=== PATIENT | male | born 1940 | race African-American/Black ===

== ENCOUNTER 2018-12-21 10:17 | Day surgery (SDC) | payer MEDICARE ==
[~2018-12-21 10:17] MED LIST: ACETAMINOPHEN 1,000 MG/100 ML BTL IVPB ONE; ACETAMINOPHEN 325 MG TAB PO PRN; ACETAMINOPHEN W/ CODEINE 300MG/30MG TABLET PO PRN; ACETAMINOPHEN W/ CODEINE 300MG/60MG TABLET PO PRN; AL HYDROX/MAG HYDROX 30ML UD PO PRN; BISACODYL 10 MG SUPP RC PRN; CEFAZOLIN 2 Gram 2 GM/50 ML BAG IVPB SCH; CELECOXIB 100 MG CAPSULE PO ONE; DIPHENHYDRAMINE HCL 25 MG CAPSULE PO PRN; FAMOTIDINE 20MG TABLET PO ONE; HYDROCODONE/APAP 5/325MG TABLET PO PRN; HYDROCODONE/APAP 7.5/325MG TABLET PO PRN; HYDROMORPHONE HCL 2 MG/ML VIAL IM PRN; KETOROLAC 30 MG/ML VIAL IVP PRN; MAGNESIUM HYDROXIDE 30 ML UDC PO PRN; METOCLOPRAMIDE 10 MG TABLET PO ONE; METOCLOPRAMIDE HCL 10 MG/2 ML VIAL IVP PRN; NALOXONE 0.4 MG/1 ML VIAL IVP PRN; ONDANSETRON HCL IV 4 MG/2 ML VIAL IVP PRN; PROMETHAZINE HCL 12.5 MG in 0.9 % SODIUM CHLORIDE 100ML 50 ML IVPB PRN; RINGERS SOLUTION,LACTATED 1,000 ML IV ONE; SCOPOLAMINE 1 PATCH TDSY TD ONE; TRAMADOL HCL 50 MG TABLET PO PRN; VANCOMYCIN 1GM/200ML PREMIX 1 GM/200 ML PIGGYBACK IVPB ONE; ZOLPIDEM TARTRATE 5 MG TABLET PO PRN
[2018-12-21] MEDS ORDERED: PROPOFOL 10 MG/ML VIAL IV ONE (10:18)
[2018-12-21] MEDS ORDERED: BUPIVACAINE LIPOSOME 266MG/20ML VIAL IV ONE (10:18)
[2018-12-21] MEDS ORDERED: TRANEXAMIC ACID 1,000 MG/10 ML ML IV ONE ×2 (10:18)
[2018-12-21] MEDS ORDERED: BUPIVACAINE 0.5% W/EPI MPF 30 ML VIAL IVP ONE (10:18)
[2018-12-21] MEDS ORDERED: MIDAZOLAM HCL 2MG/2ML VIAL IV ONE (10:18)
[2018-12-21] MEDS ORDERED: VANCOMYCIN HCL 1 GM VIAL IVPB ONE ×2 (10:18)
[2018-12-21] MEDS ORDERED: ROPIVACAINE HCL (NAROPIN) /PF 5MG/ML 20ML VIAL IV ONE (10:18)
[2018-12-21] MEDS ORDERED: DEXAMETHASONE 4 MG/ML 1ML VIAL IVP ONE (10:18)
[2018-12-21 10:48] LABS: INR 1.1; PROTHROMBIN TIME (PATIENT) 11.3 SECONDS (9.5-12.1)
[2018-12-21] MEDS ORDERED: RINGERS SOLUTION,LACTATED 1,000 ML IV ONE ×2 (10:50→12:40)
[2018-12-21] MEDS ORDERED: BUPIVACAINE LIPOSOME 266MG/20ML VIAL SQ ONE (12:39)
[2018-12-21] MEDS ORDERED: BUPIVACAINE 0.5% W/EPI MPF 30 ML VIAL SQ ONE (12:39)
[2018-12-21] MEDS ORDERED: VANCOMYCIN HCL 3,000 MG in RINGERS SOLUTION,LACTATED 3,000 ML IVPB ONE (12:40)
[2018-12-21] MEDS ORDERED: DEXTROSE 5 % AND 0.9 % NACL 1,000 ML IV PRN (14:30)
[2018-12-21] MEDS: HYDRALAZINE HCL 10 MG TABLET PO SCH ×2 (16:08→21:23)
--- NOTE | 2018-12-21 17:02 | Rehab Evaluation ---
Patient Information - Patient Information Diagnosis: L knee DJD Ordered Treatment: PT Evaluate and Treat Status: Initial Evaluation Surgery: Yes (L TKA) Date of Surgery: 12/21/18 Past Medical/Surgical Hx: PAST MEDICAL/SURGICAL HISTORY Surgery to Affected Area? No Recent Surgery? Past Surgical History AICD placement 07/15/2012 cyst removed on scalp C scope PMH - Respiratory Hx Respiratory Disorders Yes Hx Pneumonia Yes Hx Pulmonary Embolism Yes: ~2010 PMH - Cardiovascular Hx Cardiovascular Disorders Yes Hx Abnormal EKG Yes Hx Cardiac Catheterization Yes Hx Edema Yes: on meds, no problem since Hx Heart Attack Yes: 07/15/2012 Hx Hypertension Yes Hx Irregular Heartbeat Yes: before 06/2012 Hx Pacemaker/Defibrillator Yes: 07/15/2012 Exercise Tolerance Good Residual Deficits from CVA No PMH - Neuro Hx Neurological Disorders Yes Hx Cerebrovascular Accident Yes: before heart attack 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 this could be the cause PMH - GI Hx Gastrointestinal Disorders No PMH - Hx Genitourinary Disorders Yes Hx Dialysis Yes: around the time of heart attack Hx Prostate Problems Yes: prostate cancer, radiation treatment 2014 PMH - Endocrine Hx Endocrine Disorders Yes Hx Diabetes Yes Hx of NIDDM Yes: diet controlled, no medications PMH - Musculoskeletal Hx Musculoskeletal Disorders Yes Hx Arthritis Yes PMH - Psych Hx Psychiatric Problems No PMH - Hematology/Oncology Hx Hematology/Oncology Yes Disorders Hx Cancer Yes: prostate Hx Radiation Therapy Yes: 2014 Hx Clotting Problems No Premorbid Status: Detail (The patient was independent with all mobility prior to surgery.) Social History: Detail (The patient lives alone in a 2 story house with one step at the enterance and one handrail. The bathroom is equipped with a tub/shower combination, a standard height toilet) Precautions: [place], Fall, Other (WBAT on the L LE) - Time With Patient Total Time Spent With Patient (Min): 30 Treatment Procedures: Detail (Initial Evaluation low complexity due to stable condition.) Subjective Information - Subjective Information Per Patient (The patient had complaints of L knee pain level 3 at the highest using 0-10 pain scale.) Objective Data - Mental Status Patient Orientation: Oriented x3 - Visual Perception Appears within normal limits for therapeutic activities - ROM Not within normal limits (The patient's L knee AROM was limited s/p surgery, all other LE AROM was WNL.) - Strength/Tone Not within normal limits (The patient's L LE strength was not tested s/p however was functional ie: patient was able to complete a SLR. The patient's R LE strength was WNL.) - Bed Mobility Independent (The patient was independent with supine to and from sitting transfer and scooting up in bed.) - Transfers Independent (The patient was independent with sit to and from sit transfer.) - Balance Balance Sitting: Good Balance Standing: Good - Gait Detail (The patient ambulated with front wheeled walker a distance of 70 feet x 1 WBAT on L LE with supervision for safety.) Therapy Assessment - Therapy Assessment Detail (The patient was independent with bed mobility, transfers and required supervision for safety only. Feel the patient will progress well with mobility.) Problem List - Problem List Physical Therapy Problem List: Detail (1) Decreased L knee AOM and L LE strength as to be expected following surgery.) Goals - Goals Physical Therapy Goals: 1) The patient will be independent with TKA HEP. 2) The patient will ambulate on stairs using proper technique with supervision for safety. Prognosis - Prognosis Good Plan - Plan Physical Therapy Plan: PT for 1-2 sessions for gait training on stairs and instruction in HEP
[2018-12-21] MEDS: HYDROCODONE/APAP 7.5/325MG TABLET PO PRN ×2 (17:21→22:49)
[2018-12-21] MEDS: GEMFIBROZIL 600 MG TABLET PO SCH (21:23)
[2018-12-21] MEDS: DOCUSATE SODIUM 100 MG CAPSULE PO SCH (21:23)
[2018-12-21] MEDS: CARVEDILOL 12.5 MG TABLET PO SCH (21:23)
[2018-12-21] MEDS: FERROUS SULFATE 325 MG TAB PO SCH (21:23)
[2018-12-21] MEDS: VANCOMYCIN 1GM/200ML PREMIX 1 GM/200 ML PIGGYBACK IVPB SCH (22:52)
[2018-12-22 06:41] LABS: HEMATOCRIT 32.6 % (42.0-52.0); HEMOGLOBIN 10.5 gm/dl (14.0-18.0)
[2018-12-22] MEDS: HYDROCODONE/APAP 7.5/325MG TABLET PO PRN ×3 (06:50→15:49)
[2018-12-22] MEDS: HYDRALAZINE HCL 10 MG TABLET PO SCH ×3 (09:15→22:08)
[2018-12-22] MEDS: FERROUS SULFATE 325 MG TAB PO SCH ×2 (09:15→22:07)
[2018-12-22] MEDS: ATORVASTATIN 20 MG TABLET PO SCH (09:15)
[2018-12-22] MEDS: RIVAROXABAN 10 MG TABLET PO SCH (09:15)
[2018-12-22] MEDS: POTASSIUM CHLORIDE 20 MEQ TABLET PO SCH (09:15)
[2018-12-22] MEDS: DOCUSATE SODIUM 100 MG CAPSULE PO SCH ×2 (09:15→22:07)
[2018-12-22] MEDS: FUROSEMIDE 20 MG TABLET PO SCH ×2 (09:16→15:49)
[2018-12-22] MEDS: GEMFIBROZIL 600 MG TABLET PO SCH ×2 (09:16→22:07)
[2018-12-22] MEDS: ISOSORBIDE MONONITRATE 30 MG TAB.ER.24H PO SCH (09:17)
[2018-12-22] MEDS: CARVEDILOL 12.5 MG TABLET PO SCH ×2 (09:17→22:08)
[2018-12-22] MEDS: AMIODARONE HCL 200 MG TABLET PO SCH (09:17)
[2018-12-22] MEDS: CELECOXIB 100 MG CAPSULE PO SCH (09:18)
--- NOTE | 2018-12-22 09:44 | Rehab Evaluation ---
Patient Information - Patient Information Diagnosis: L knee DJD Ordered Treatment: OT Evaluate and Treat Status: Initial Evaluation Surgery: Yes (L TKA) Date of Surgery: 12/21/18 Past Medical/Surgical Hx: PAST MEDICAL/SURGICAL HISTORY Surgery to Affected Area? No Recent Surgery? Past Surgical History AICD placement 07/15/2012 cyst removed on scalp C scope PMH - Respiratory Hx Respiratory Disorders Yes Hx Pneumonia Yes Hx Pulmonary Embolism Yes: ~2010 PMH - Cardiovascular Hx Cardiovascular Disorders Yes Hx Abnormal EKG Yes Hx Cardiac Catheterization Yes Hx Edema Yes: on meds, no problem since Hx Heart Attack Yes: 07/15/2012 Hx Hypertension Yes Hx Irregular Heartbeat Yes: before 06/2012 Hx Pacemaker/Defibrillator Yes: 07/15/2012 Exercise Tolerance Good Residual Deficits from CVA No PMH - Neuro Hx Neurological Disorders Yes Hx Cerebrovascular Accident Yes: before heart attack 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 this could be the cause PMH - GI Hx Gastrointestinal Disorders No PMH - Hx Genitourinary Disorders Yes Hx Dialysis Yes: around the time of heart attack Hx Prostate Problems Yes: prostate cancer, radiation treatment 2014 PMH - Endocrine Hx Endocrine Disorders Yes Hx Diabetes Yes Hx of NIDDM Yes: diet controlled, no medications PMH - Musculoskeletal Hx Musculoskeletal Disorders Yes Hx Arthritis Yes PMH - Psych Hx Psychiatric Problems No PMH - Hematology/Oncology Hx Hematology/Oncology Yes Disorders Hx Cancer Yes: prostate Hx Radiation Therapy Yes: 2014 Hx Clotting Problems No Premorbid Status: Detail (The patient was independent with all ADLs and mobility prior to surgery.) Social History: Detail (The patient lives alone in a 2 story house with no stairs at the entrance. His bedroom and bath are on the second story with a full flight of stairs and L hand-rail. There is a laundry shoot to the main floor laundry. The bathroom is equipped with a tub/shower combination, a hand-held shower, and a standard height toilet. The patient has a FWW and a cane. Pt's daughter to live with him beginning in January.) Precautions: [place], Fall, Other (WBAT on the L LE) - Time With Patient Total Time Spent With Patient (Min): 33 (1 eval, 1 ADL) Treatment Procedures: Detail (OT eval: low complexity) Subjective Information - Subjective Information Per Patient (Ok to see per CARLINE Valiente. Pt agreeable to OT marco and Tx, in bed upon arrival eating breakfast.) Objective Data - Pain Pain Present: No Pain Scale Used: Numeric (1 - 10) (0/10) - Mental Status Patient Orientation: Oriented x3 - Visual Perception Appears within normal limits for therapeutic activities - ROM Within normal limits (WNL B UEs) - Strength/Tone Within normal limits (WNL B UEs) - Coordination Appears within normal limits for therapeutic activities - Bed Mobility Independent (supine >< EOB) - Transfers Independent (sit > stand from elevated EOB with CGA for slight balance deficit) - Balance Balance Sitting: Good Balance Standing: Fair (Fair+ during standing pant mgmt) - Sensation Intact - Gait Detail (Fxl amb. within bedroom with CGA and FWW, slight LOB x2 Pt correct while negotiating obstacles within bedroom.) - ADL's/IADL's Detail (OT educ. Pt on adaptive tech for LB dressing, Pt dons briefs and pants with MOD I using adaptive technique, requires assist to don L sock - Pt educates Pt on sock aide - Pt verbalizes understanding, declines need for device but will check back with Pt later this date in case he changes his mind. Therapist educates Pt on safe use of FWW and safety with kitchen, bathroom, and laundry tasks including home mods, i.e. installing suction GB and chair in shower, Pt verbalizes understanding.) - Special Tests No Therapy Assessment - Therapy Assessment Detail (Pt with slight deficits in LB dressing, standing balance during functional tasks, and functional TFs. Pt may benefit from short rehab stay to address concerns and ensure safe DC home alone with 12 steps to his bedroom and bathroom.) Patient Education - Patient Education Teaching Topic: Equipment Use, Exercise/Activity Response: Return Demonstration, Verbalize Understanding Teaching Method: Discussion, Demonstration Teaching Recipient: Patient Barriers To Learning: None Problem List - Problem List Physical Therapy Problem List: Detail (1) Decreased L knee AOM and L LE strength as to be expected following surgery.) Occupational Therapy Problem List: Detail (1. Decreased independence with LB dressing, including donning L sock and balance deficit during standing pant mgmt. 2. Decreased safety and balance during functional TFs.) Goals - Goals Physical Therapy Goals: 1) The patient will be independent with TKA HEP. 2) The patient will ambulate on stairs using proper technique with supervision for safety. Occupational Therapy Goals: 1. Pt will be MOD I with LB dressing using sock aide and ice rink attendant and will demo good balance during standing pant mgmt. 2. Pt will demo good balance and safety during functional TFs including negotiating obstacles within bedroom. Prognosis - Prognosis Good Plan - Plan Physical Therapy Plan: PT for 1-2 sessions for gait training on stairs and instruction in HEP Occupational Therapy Plan: OT 1-2 sessions to address goals.
[2018-12-22] MEDS ORDERED: WARFARIN 5 MG TAB PO SCH ×2 (10:00→17:00)
--- NOTE | 2018-12-22 10:14 | Physical Therapy Tx Note ---
Physical Therapy Tx Note - Treatment Note Tolerated: Good Total Time Spent With Patient: 30 Physical Therapy Tx Note: Detail (Patient began therapy session sitting in recliner. Patient completed sit to stand transfer from recliner with 2-wheeled walker for support and CGAx1 with multiple attempts. Patient reported that his pain was around a 5/10 today. Patient ambulated total distance of 82 feet with 2-wheeled walker and CGA/SBAx1 for safety. Patient did require verbal cueing on walker placement for safe ambulation. Patient ascended/descended 3 stairs using one railing and folded walker for bilateral hand support and CGAx1. Patient was then brought back to room and completed standing pivot transfer to the right to the edge of the bed. Patient completed ankle pumps and heel slides at the edge of the bed. Patient then completed bed transfer from L EOB to supine independently with supervision assistance x1. Patient was instructed on isometric quad contractions, isometric hamstring curls, glut squeezes, and straight leg raises. Patient performed all exercises correctly and is independent with home exercise program. Patient reported during session that bathroom is upstairs and he must ascend/descend a flight. Patient was too painful to complete stairs, therefore follow-up session for additional stair training will be beneficial. Patient would benefit from additional stair training at home from physical therapy.) Physical Therapy Problem List: Detail (1) Decreased L knee AOM and L LE strength as to be expected following surgery.) Physical Therapy Goals: 1) The patient will be independent with TKA HEP (met). 2) The patient will ambulate on stairs using proper technique with supervision for safety. (met) Physical Therapy Plan: Follow up session for stair training to assure patient is confident with transition home.
[2018-12-22] MEDS: VANCOMYCIN 1GM/200ML PREMIX 1 GM/200 ML PIGGYBACK IVPB SCH (10:21)
--- NOTE | 2018-12-22 14:49 | Physical Therapy Tx Note ---
Physical Therapy Tx Note - Treatment Note Tolerated: Good Total Time Spent With Patient: 15 Physical Therapy Tx Note: Detail (The patient was in bathroom when PT arrived. The patient complained of level 10 L knee pain. The patient ambulated with front wheeled walker independently at a slow pace a distance of 52 feet x 1, WBAT on the L LE independently. The patient ambulated on a flight of 3 stairs and 7 stairs with supervision for safety only a using proper technique with folded walker and one railing. The patient has met all inpatient goals and is discharged from inpatient PT.) Physical Therapy Problem List: Detail (1) Decreased L knee AOM and L LE strength as to be expected following surgery.) Physical Therapy Goals: 1) The patient will be independent with TKA HEP (met). 2) The patient will ambulate on stairs using proper technique with supervision for safety. (met) Physical Therapy Plan: The patient has met all inpatient PT goals and is discharged from inpatient PT.
--- NOTE | 2018-12-22 16:04 | Occupational Therapy Tx Note ---
Occupational Therapy Tx Note - Treatment Note Tolerated: Good Occupational Therapy Treatment Note: Detail (S: Pt in chair upon arrival, agreeable to OT Tx. Daughter, Marysol, present. O: OT facilitated discussion re: home modifications for successful home DC if need be. Pt reports he can sleep on the couch and therapist gave resources for loan closets for BSC for main level - daughter reports she will take care of it. Pt's ex- able to assist with meal prep and daughter able to stop by after work daily to empty commode. Therapist educates Pt on sock aide and sugar cane grower and Pt demos understanding with MOD I to don/doff socks, purchases both devices. Pt completes toilet TF from low EOB > st d. toilet > recliner with CGA and FWW progressing to MOD I. Increased safety and balance since this morning and better safety awareness with FWW. Pt demos indep. to don/doff ice on knee and reports daughter can assist with tedhose daily until independent. A: Pt with increased safety and independence this session, no safety concerns during ADLs or functional ambulation. P: All OT goals met, DC IP OT. Pt lives alone with 12 steps to bedroom/bath and may benefit from further OP PT - see PT notes for recs.) Occupational Therapy Problem List: Detail (ALL GOALS MET: 1. Decreased independence with LB dressing, including donning L sock and balance deficit during standing pant mgmt. 2. Decreased safety and balance during functional TFs.) Occupational Therapy Goals: 1. Pt will be MOD I with LB dressing using sock aide and sugar cane grower and will demo good balance during standing pant mgmt. 2. Pt will demo good balance and safety during functional TFs including negotiating obstacles within bedroom. Prognosis: Good Occupational Therapy Plan: All OT goals met. DC IP OT. Thank you for this referral.
[2018-12-22] MEDS ORDERED: ENTRESTO PO SCH (17:00)
--- NOTE | 2018-12-22 17:36 | RADIOLOGY REPORT ---
Chest 1 view. CLINICAL HISTORY: Subacute rehab placement. TECHNIQUE: A single mobile upright view of the chest is obtained. COMPARISON: None. FINDINGS: A dual lead transvenous cardiac stimulator is in place via the left subclavian approach with lead tips in the right atrium and right ventricle respectively. The heart is not enlarged. No pulmonary venous hypertension is seen. No lung consolidation is identified. Minor linear scarring versus atelectasis questioned in the left lung base. The lungs and pleural spaces are otherwise clear. IMPRESSION: No convincing radiographic evidence of acute cardiopulmonary disease. Minor linear scarring versus atelectasis within the left lung base. Dual lead transvenous cardiac stimulator in place. MTDD
--- NOTE | 2018-12-22 17:40 | Operative Note ---
DATE OF SURGERY: 12/21/2018 PREOPERATIVE DIAGNOSIS: End-stage left knee arthrosis. POSTOPERATIVE DIAGNOSIS: End-stage left knee arthrosis. OPERATION: Left total knee arthroplasty. SURGEON: Earl Zheng MD ANESTHESIA: Spinal, ELINA Roberson. COMPLICATIONS: None. ESTIMATED BLOOD LOSS: Minimal. TOURNIQUET TIME: 65 minutes OPERATIVE FINDINGS: [id number] tricompartmental arthrosis. COMPONENTS PLACED: A 2 g vancomycin cemented Journey II Oxinium total knee arthroplasty system size 9 femoral component, a size 8 tibial baseplate, a 9 mm thick tibial poly insert, and 35 mm cemented patellar component. INDICATIONS: This is a 78-year-old male who has had severe end-stage knee arthrosis for several years. Failed nonoperative treatment. Has some for knee replacement. I explained all risks and benefits in detail for the diagnosis and procedure including but not limited to infection, nerve injury, vessel injury, persistent pain, stiffness, numbness, tingling in the knee, periprosthetic fracture, need for resection arthroplasty if components become infected or loosen, nerve injury, vessel injury, blood clot, need for further procedures, and need for anticoagulation to prevent blood clots for associated medications. All his questions were answered. Rehab and healing course was outlined. He agreed to proceed. PROCEDURE: The patient brought to the OR, placed in the supine position, prepped for surgery. Spinal anesthesia induced. The left lower extremity and knee prepped and draped in sterile fashion. Left knee prepped again with Chloraprep after it was draped. Intraoperative timeout was performed. Next, the knee was injected with 0.5% Marcaine with epinephrine, tranexamic, Exparel mixture. The leg was exsanguinated with Esmarch. The knee was flexed and tourniquet inflated to 250 mmHg pressure. Next, skin and subcutaneous tissue dissected down to the capsule. Incised the capsule medially along the medial border of the patella to the tibial tubercle. Incised the vastus medialis in line with its fibers in a mid vastus approach and everted the patella. I partially resected the retropatellar fat pad, elevated the capsule subperiosteally and medially, and then flexed the knee. He had severe [id number] tricompartmental arthrosis with large osteophytes. Drilled the intracondylar drill hole and inserted intramedullary guide patrica and the 6- degree cutting block and aligned it off the distal femoral condyles, pinned it in +2 mm position, and cut the distal femoral condyles. On the distal femoral condyle, we then placed a sizing jig. We sized it to be right on size 9. Through previously-placed pin holes, we placed the size 9 5-in-1 cutting jig. Went down the anterior cut so it would come out flush without notching. Cut that cut and it was a good flush cut. We then pinned the cutting jig and cut the remainder of the chamfer cuts in the usual fashion. Then we inserted the trial 9 component, centered it, pinned it, removed osteophytes off the periphery. Then inserted the femoral resection collet and then reamed down and box osteotomed off the cruciate bone block. Next, attention was turned to the tibia. Placed the external alignment jig in the tibia, seated the spikes in the tubercular groove 2 fingerbreadths distal to the anterior tibial cortex in reference for a 9 mm cut off the higher medial plateau. We pinned the cutting jig provisionally with 2 anterior-posterior pins. We rechecked alignment of the cuts using a drop patrica centered on the tibial anatomic axis and then cross-pinned completing its fixation and then cut the tibia. Next, we removed osteophytes off the posterior femoral condyle. We checked the flexion/extension gaps. He had symmetric flexion/extension gaps with the 9 mm thick poly insert. Allowed for 1-2 mm of varus/valgus laxity in flexion/extension. Overall alignment of the cuts in extension with anatomic valgus orientation with alignment patrica centered on the hip joint and ankle joint. Next, took the knee into flexion and then sized the tibial baseplate size 8. We placed all trial components, set the rotation tibial baseplate again in extension using the alignment patrica centered on hip joint and ankle joint. Marked electrocautery hernandez on the anterior tibial cortex off the laser hernandez on the tibial baseplate. Next, measured the patella, set the cutting jig to allow for a 9 mm thick poly insert. Cut the patella using the cutting jig. Rechecked the width of the patella and it was right on 17-18. We then chamfered off lateral patellar facet and sized it to be 35, medialized as much as possible, and drilled 3 peg holes as we placed the trial patella component and then mixed cement. The patella tracked nicely handsfree to full extension, flexion to 140-150 degrees. We placed a bone plug in the femoral canal hole and placed the drill. Next, we took the tibial baseplate, centered it, pinned it, and then reamed out and then keel punched the keel hole. Next, we changed gloves, brought in a clean sheet, copiously irrigated bony surfaces with pulse lavage and antibiotic solution and then precoat bolsters and impacted down the tibial component first, then the femoral component. Placed the trial tibial poly liner, held the knee in extension, clamped down on the patellar component and until the cement hardened. Once the cement hardened, we then took the knee into flexion, extracted the knee bone hook and sponge, removed the trial tibial component, removed any excess cement around the edge of the components. Then we injected our 0.5% Marcaine with epinephrine, Exparel, tranexamic acid mixture in the posterior capsule areas and then placed the real tibial poly insert and verified it was interlocked medially and laterally. Continued injected our 0.5% Marcaine with Exparel and tranexamic acid mixture working deep to superficial in the periosteum, medial, lateral, and periosteum and in the deep vastus medialis subcutaneous and skin. We next closed the knee in flexion in the capsule with running #2 quill Stratafix suture securely. Irrigated again and closed skin deep with 2-0 Vicryl, and provisional dressing was applied with Acticoat and will be changed to a DAVE dressing prior to discharge. CC: Dr. José LEWIS
[2018-12-22] MEDS ORDERED: TAMSULOSIN HCL 0.4 MG CAP.ER.24H PO SCH (22:00)
[2018-12-23] MEDS: HYDROCODONE/APAP 7.5/325MG TABLET PO PRN ×2 (03:39→13:50)
[2018-12-23 06:55] LABS: HEMATOCRIT 31.1 % (42.0-52.0); HEMOGLOBIN 9.9 gm/dl (14.0-18.0)
[2018-12-23 07:04] LABS: INR 1.2; PROTHROMBIN TIME (PATIENT) 12.3 SECONDS (9.5-12.1)
[2018-12-23] MEDS: CELECOXIB 100 MG CAPSULE PO SCH (09:53)
[2018-12-23] MEDS: GEMFIBROZIL 600 MG TABLET PO SCH (09:53)
[2018-12-23] MEDS: ISOSORBIDE MONONITRATE 30 MG TAB.ER.24H PO SCH (09:53)
[2018-12-23] MEDS: POTASSIUM CHLORIDE 20 MEQ TABLET PO SCH (09:54)
[2018-12-23] MEDS: RIVAROXABAN 10 MG TABLET PO SCH (09:54)
[2018-12-23] MEDS: HYDRALAZINE HCL 10 MG TABLET PO SCH (09:54)
[2018-12-23] MEDS: AMIODARONE HCL 200 MG TABLET PO SCH (09:54)
[2018-12-23] MEDS: ATORVASTATIN 20 MG TABLET PO SCH (09:54)
[2018-12-23] MEDS: CARVEDILOL 12.5 MG TABLET PO SCH (09:55)
[2018-12-23] MEDS: DOCUSATE SODIUM 100 MG CAPSULE PO SCH (09:55)
[2018-12-23] MEDS: FUROSEMIDE 20 MG TABLET PO SCH (09:55)
[2018-12-23] MEDS: FERROUS SULFATE 325 MG TAB PO SCH (09:55)
[2018-12-24] MEDS ORDERED: WARFARIN 2.5 MG TAB PO SCH (17:00)
== END 2018-12-23 13:57 | disposition home health service (06) ==
LOC: SUR 10:17 → MEDSURG 14:36 → SUR 12-23 13:57
PROVIDERS: ATTEND Orthopaedic Surgery
DX: M17.12 Unilateral primary osteoarthritis, left knee (principal); I10 Essential (primary) hypertension; Z79.01 Long term (current) use of anticoagulants; E78.00 Pure hypercholesterolemia, unspecified; N40.0 Benign prostatic hyperplasia without lower urinary tract symptoms; I25.2 Old myocardial infarction; Z95.0 Presence of cardiac pacemaker; Z86.73 Personal history of transient ischemic attack (TIA), and cerebral infarction without residual deficits; Z86.711 Personal history of pulmonary embolism; Z95.810 Presence of automatic (implantable) cardiac defibrillator
CPT/HCPCS: 27447; 01402; 64447; 85018; 85014; 85610; 71045; J3370 ×3; J0690; C9290; J3490; J2795; 76942; 94760; 97110; 97535; J7120